=== PATIENT | female | born 1965 | race Caucasian/White ===

== ENCOUNTER → 2016-06-12 | Outpatient (CLI) | payer OTHER | LOC: BMCIMAGING 07:58 | PROVIDERS: ATTEND Midwife | DX: N85.8 Other specified noninflammatory disorders of uterus (principal); N83.202 Unspecified ovarian cyst, left side ==

== ENCOUNTER 2016-07-29 06:00 | Day surgery (SDC) | payer OTHER ==
[2016-07-29] MEDS ORDERED: LR 1,000 ML IV ONE (06:19)
[2016-07-29] MEDS ORDERED: SILVER NITRATE APPLICATOR 1 APPL TP ONE (07:10)
[2016-07-29 07:18] LABS: COLOR YELLOW; LEUKOCYTE ESTERASE,URINE NEGATIVE (NEGATIVE); NITRITE,URINE NEGATIVE (NEGATIVE)
[2016-07-29] MEDS ORDERED: MIDAZOLAM 2 MG/2 ML VIAL ONE (07:22)
[2016-07-29] MEDS ORDERED: PROPOFOL 200 MG/20 ML VIAL ONE (07:27)
[2016-07-29] MEDS ORDERED: fentaNYL 100 MCG/2 ML INJ ONE (07:27)
[2016-07-29 07:46] LABS: MUCUS TRACE /lpf (NONE-1+); RBC,URINE 50-182 /hpf (0-3)
--- NOTE | 2016-07-29 13:21 | GOP ---
[f rep st] OPERATIVE REPORT DATE OF OPERATION: 07/29/2016 SURGEON: Jenni Eubanks MD [employer] ENGINEER: None. ANESTHESIA: General. PREOPERATIVE DIAGNOSIS: 1. Abnormal perimenopausal bleeding. 2. Cystic endometrial lining. POSTOPERATIVE DIAGNOSIS: 1. Abnormal perimenopausal bleeding. 2. Cystic endometrial lining. 3. Small endometrial polyps. PROCEDURE PERFORMED: 1. Dilation and curettage. 2. Morcellation of endometrial polyps. FINDINGS: 1. Exam under anesthesia revealed an anteverted uterus and no adnexal masses. 1. Endometrial cavity appeared to have an irregular thickened endometrium with thickening noted ant eriorly in the midline and posteriorly with a polyp noted at the right ostia, as well as thickening posteriorly in front of the left ostia. 2. SPECIMENS: Endometrial curettings to include a suspected endometrial polyp. ESTIMATED BLOOD LOSS: Less than 5 cc. INDICATIONS: The patient is a 51-year-old perimenopausal female with worsening abnormal bleeding. She has had constant bleeding in the last 3-4 months with episodic heavy bleeding. She had normal s quynh labs and an endometrial biopsy that was negative on June 19, 2016. Her pelvic ultrasound show ed a thickened endometrial stripe with some cystic components. DESCRIPTION OF PROCEDURE: Patient was taken to the operating room where general anesthesia was foun d to be adequate. Patient was prepared and draped in the normal sterile fashion in the dorsal litho ty position. A weighted speculum was placed in the patient's vagina and a Meneses retractor used to visualize the cervix clearly. A single-toothed tenaculum was placed on the anterior lip of the cerv ix, and the cervix was then gently dilated up to 6 mm with Hegar dilators with no immediate complica tions. A Truclear 0 degree 5 mm hysteroscope was then placed into the cervix and advanced easily in to the uterine cavity. The uterine cavity was visualized clearly and bilateral ostia seen clearly. There was thickening and 1 small polyp noted, as well as a second possible polyp growing along the left posterior uterine wall. The 2.9 morcellator was used to remove the polyps and do a visual cure ttage under direct visualization, sampling the entire endometrium and removing the areas of thickeni ng that were noted. The hysteroscope was then removed and a sharp curettage was performed. All cur ettings were sent to Pathology. The tenaculum was then removed from the cervix and hemostasis obtai radha with silver nitrate. All sponge, lap, and needle counts were correct x2. Patient was transferred to the PACU in stable a nd good condition. COMPLICATIONS: None. DRAINS: None. URINE OUTPUT: 50 cc. IV FLUIDS: 650 cc. /[id number]/MODL
== END 2016-07-29 09:44 | disposition home or self-care (01) ==
LOC: FSGY 06:00
PROVIDERS: ATTEND Obstetrics & Gynecology
PROC: 0UB98ZX Excision of Uterus, Via Natural or Artificial Opening Endoscopic, Diagnostic (ICD-10-PCS; principal; 2016-07-29 07:30)
DX: N93.9 Abnormal uterine and vaginal bleeding, unspecified (principal); N84.0 Polyp of corpus uteri; N80.3 Endometriosis of pelvic peritoneum
CPT/HCPCS: 58558; C1782; J2250; J2704; J3010